=== PATIENT | male | born 1995 | race Caucasian/White ===

== ENCOUNTER 2017-04-24 16:39 | Emergency (ER) | payer OTHER ==
[~2017-04-24] VITALS: Ht 180.3 cm; Wt 47.6 kg
[2017-04-24 16:40] VITALS: BP 101/61
== END 2017-04-24 18:53 | disposition home or self-care (01) ==
LOC: ER 16:44
DX: M79.652 Pain in left thigh (principal); M79.662 Pain in left lower leg
CPT/HCPCS: 93971; 99284; A4606; Z7610